=== PATIENT | male | born 2000 | race African-American/Black ===

== ENCOUNTER 2022-03-05 15:39 | Emergency (ER) | payer MEDICAID, SELFPAY ==
[2022-03-05] VITALS (8 sets, daily range): BP systolic 93–176; BP diastolic 67–94; PULSE 94–130; RESP 18–25; TEMP 36.2–37.3; O2SAT 92–100; BMI 24.3
--- NOTE | 2022-03-05 15:54 | EX.ED.DYSGE1 ---
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 Patient was on the top bunk at the halfway when he had a seizure. Patient fell off and hit his head. Upon arrival to the emergency department, the patient had another seizure. Patient is currently postictal. Patient is nonverbal at this time. PFSH PFS Medical History unable to obtain Home Medications Unobtainable 03/05/22 [History Last Taken Unknown] Allergy/AdvReac Type Severity Reaction Status Date / Time Unable to Assess Allergy Verified 03/05/22 17:54 Family History unable to obtain Surgical History unable to obtain Social History Smoking Status: Unknown if ever smoked ROS ROS ED Review of Systems ROS Unobtainable: due to mental status EXAM Physical Exam Const Vital Signs: 03/05/22 15:41 03/05/22 16:06 03/05/22 17:27 Temperature 97.1 F L Temperature Source Temporal Pulse Rate 94 122 H 130 H Respiratory Rate 18 25 H 20 H Respiratory Effort Respiratory Depth Respiratory Pattern Blood Pressure 176/94 H 93/81 H Blood Pressure Mean 121 85 Pulse Ox 99 92 95 Oxygen Delivery Method Room Air Room Air Room Air 03/05/22 16:00 03/05/22 17:49 03/05/22 18:00 Temperature Temperature Source Pulse Rate 123 H 118 H Respiratory Rate 23 H 20 H Respiratory Effort Normal Non-Labored Respiratory Depth Normal Respiratory Pattern Normal Blood Pressure 125/88 H 129/74 H Blood Pressure Mean 100 92 Pulse Ox 99 100 Oxygen Delivery Method Room Air Room Air Room Air 03/05/22 18:06 Temperature 99.2 F H Temperature Source Temporal Pulse Rate Respiratory Rate Respiratory Effort Respiratory Depth Respiratory Pattern Blood Pressure Blood Pressure Mean Pulse Ox Oxygen Delivery Method Positive well nourished and well developed General Appearance ED: well developed HEENT HEENT Narrative: There is right periorbital edema and ecchymosis. There is a laceration of the right eyebrow. There is no bony crepitance or step-off. Resp normal respiratory effort and clear to auscultation bilaterally Cardio regular rate and regular rhythm GI normal to inspection, nondistended, normoactive bowel sounds and non-tender MDM MDM MDM Narrative Medical decision making narrative: Patient was given IV fluids and Ativan here. Patient was given a tetanus booster. Patient had 2 other seizures before regaining consciousness. Patient was given Ativan, Dilantin, and Keppra for the seizures. CBC shows a leukocytosis of 18.4. Pro time was 18.1 with an INR of 1.5. PTT was 29.1. Comprehensive metabolic profile shows a sodium of 148, CO2 of 8.0, anion gap of 36, creatinine of 1.43, glucose of 201. Patient was given 2 doses of sodium and bicarbonate. Patient was given more IV fluids. Urinalysis does not show any evidence of urinary tract infection. Serum acetone was negative. Serum lactate was elevated at 31.4. Arterial blood gas shows a pH of 7.235, PCO2 of 31.4, PO2 of 98.6, bicarb of 13.3, and O2 saturation of 96.4. CT scan of the brain was obtained. There is no acute intracranial hemorrhage or mass-effect. There is a right orbital roof fracture with extension into the anterior cranial fossa. This was interpreted by the radiologist and reviewed by myself. Portable 1 view chest x-ray was obtained. On my interpretation, lung chery are clear. There is normal cardiac silhouette. Bony thorax is normal. There is no acute process noted. Radiologist also interpreted the x-ray and agrees. Patient was given a tetanus booster. Case was discussed with Dr. Driver, trauma surgeon at [facility]. She excepted the patient to trauma ICU. Patient will be transferred there. Lab Data Attestation: I reviewed the patient's lab results. Labs: Laboratory Results - last 24 hr 03/05/22 03/05/22 03/05/22 16:00 16:00 16:00 WBC 18.4 H RBC 5.19 Hgb 15.7 Hct 52.2 MCV 100.6 H MCH 30.3 MCHC 30.1 L RDW Std Deviation 45.1 H RDW Coeff of Roman 12.1 Plt Count 294 MPV 11.1 Immature Gran % (Auto) 0.800 Neut % (Auto) 43.9 L Lymph % (Auto) 45.4 H [place] % (Auto) 8.0 Eos % (Auto) 1.4 Baso % (Auto) 0.5 Absolute Neuts (auto) 8.1 H Absolute Lymphs (auto) 8.34 H Nucleated RBC % 0 Differential Comment SCANNED PT 18.1 H INR 1.5 APTT 29.1 Sodium 148 H Potassium 4.9 Chloride 104 Carbon Dioxide 8.0 L* Anion Gap 36 H BUN 13 Creatinine 1.43 H Estim Creat Clear Calc 79.72 Est GFR (MDRD) Af Amer 81 Est GFR (MDRD) Non-Af 67 BUN/Creatinine Ratio 9.1 L Glucose 201 H Lactic Acid Calcium 11.1 H Total Bilirubin 0.40 AST 30 ALT 36 Alkaline Phosphatase 70 Total Protein 9.4 H Albumin 5.0 Globulin 4.4 H Albumin/Globulin Ratio 1.1 Urine Color Urine Clarity Urine pH Ur Specific Elizabeth Urine Protein Urine Glucose (UA) Urine Ketones Urine Occult Blood Urine Nitrite Urine Bilirubin Urine Urobilinogen Ur Leukocyte Esterase Urine RBC Urine WBC Ur Squamous Epith Cells Urine Bacteria Hyaline Casts Urine Mucus Ur Drug Screen Comment Acetone Level 03/05/22 03/05/22 03/05/22 16:00 16:00 16:20 WBC RBC Hgb Hct MCV MCH MCHC RDW Std Deviation RDW Coeff of Roman Plt Count MPV Immature Gran % (Auto) Neut % (Auto) Lymph % (Auto) [place] % (Auto) Eos % (Auto) Baso % (Auto) Absolute Neuts (auto) Absolute Lymphs (auto) Nucleated RBC % Differential Comment PT INR APTT Sodium Potassium Chloride Carbon Dioxide Anion Gap BUN Creatinine Estim Creat Clear Calc Est GFR (MDRD) Af Amer Est GFR (MDRD) Non-Af BUN/Creatinine Ratio Glucose Lactic Acid 31.4 H* Calcium Total Bilirubin AST ALT Alkaline Phosphatase Total Protein Albumin Globulin Albumin/Globulin Ratio Urine Color Urine Clarity Urine pH Ur Specific Elizabeth Urine Protein Urine Glucose (UA) Urine Ketones Urine Occult Blood Urine Nitrite Urine Bilirubin Urine Urobilinogen Ur Leukocyte Esterase Urine RBC Urine WBC Ur Squamous Epith Cells Urine Bacteria Hyaline Casts Urine Mucus Ur Drug Screen Comment Acetone Level NEGATIVE 03/05/22 16:26 WBC RBC Hgb Hct MCV MCH MCHC RDW Std Deviation RDW Coeff of Roman Plt Count MPV Immature Gran % (Auto) Neut % (Auto) Lymph % (Auto) [place] % (Auto) Eos % (Auto) Baso % (Auto) Absolute Neuts (auto) Absolute Lymphs (auto) Nucleated RBC % Differential Comment PT INR APTT Sodium Potassium Chloride Carbon Dioxide Anion Gap BUN Creatinine Estim Creat Clear Calc Est GFR (MDRD) Af Amer Est GFR (MDRD) Non-Af BUN/Creatinine Ratio Glucose Lactic Acid Calcium Total Bilirubin AST ALT Alkaline Phosphatase Total Protein Albumin Globulin Albumin/Globulin Ratio Urine Color Straw Urine Clarity Clear Urine pH 7.0 Ur Specific Elizabeth 1.010 Urine Protein 30 H Urine Glucose (UA) Normal Urine Ketones Negative Urine Occult Blood 10 H Urine Nitrite Negative Urine Bilirubin Negative Urine Urobilinogen Normal Ur Leukocyte Esterase Negative Urine RBC 0-5 SEEN Urine WBC 0-5 SEEN Ur Squamous Epith Cells 0-5 SEEN Urine Bacteria RARE Hyaline Casts 10-25 SEEN Urine Mucus 0 SEEN Ur Drug Screen Comment Acetone Level ABG Data ABG results: ABG 03/05/22 17:04 Specimen Type ART Sample Site R Radial pH 7.24 L Bicarbonate Actual 13.3 L Total CO2 14 Base Excess -14 L O2 Saturation 96 ABG pCO2 31.4 L ABG pO2 99 Erasmo Test Positive O2 Delivery Device Room Air Radiography Chest X-Ray - ED: 1 View, Read by ED Physician, Read by Radiologist and Normal Diagnostic Testing: Clinical Impression(s) from Imaging Studies Brain CT 03/05/22 15:56 IMPRESSION: 1. No acute intracranial hemorrhage or mass effect. 2. Right orbital roof fracture with extension into the anterior cranial fossa. Right periorbital soft tissue swelling/injury. Electronically Signed: Levon Castillo MD (Brooks) at 16:54 EDT , Chest X-Ray 03/05/22 16:35 IMPRESSION: No acute cardiopulmonary process. Electronically Signed: Levon Castillo MD (Brooks) at 16:57 EDT , Critical Care Time Critical Care Time: Yes Critical care time (excluding procedures): 30-74 minutes (42), Including time spent:, Discussing w/Patient &/or Family/Enterprise Integration Developer, Discussing w/Consultants, Arranging Admission or Transfer and Performing Direct Patient Care at Bedside Discharge Plan Triage Chief Complaint: Trauma Other Complaint: Seizure ED Provider: Andi Copeland Dx/Rx/DC Orders Clinical Impression: Status epilepticus, Head trauma, Fracture of orbital roof, right side, initial encounter for open fracture, Acidosis, lactic, High anion gap metabolic acidosis Prescriptions: No Action Unobtainable Disposition Disposition: Acute Care Hospital Discharge Location: [facility]
--- NOTE | 2022-03-05 15:56 | CT_ITS ---
STUDY: CT BRAIN WITHOUT CONTRAST REASON FOR EXAM: Male, 21 years old. HAVING A SEIZURE AND FELL OFF THE TOP BUNK IN [facility],RT EYE SWELLING AND LACERATION RADIATION DOSAGE (If Supplied By Facility): CTDIvol = ( 44.99 ) mGy, DLP = ( 812.98 ) mGycm TECHNIQUE: Transaxial CT imaging of the brain was performed without administration of intravenous contrast material. Individualized dose optimization techniques were used for this CT. COMPARISON: No relevant priors. FINDINGS: Right periorbital/frontal soft tissue swelling with locules of air compatible laceration/injury. Normal calvarium. Normal size ventricles and extra-axial spaces for the patient''s age. Normal white matter tracts of the cerebral hemispheres. Normal basal ganglia and thalami. Normal brainstem. Normal cerebellum. There is no intracranial hemorrhage. There are no findings of an acute ischemic infarction. Air-fluid levels in the bilateral maxillary sinuses. Fracture of the right superior orbital wall/roof is seen on image 27 series 201), extending into the anterior cranial fossa (image 27 series 602). CT/Brain/Head without Contrast IMPRESSION: 1. No acute intracranial hemorrhage or mass effect. 2. Right orbital roof fracture with extension into the anterior cranial fossa. Right periorbital soft tissue swelling/injury. Electronically Signed: Levon Castillo MD (Brooks) at 16:54 EDT Reading Location ID and State: [facility] / [place] , Service support ,
[2022-03-05] MEDS: LORazepam 2 MG/ML Syringe 1 MG IV ×4 (16:00→18:43)
[2022-03-05 16:10] LABS: Absolute Lymphocyte Count 8.34 X10^3/uL (0.83-4.51); Absolute Neutrophil Count 8.1 X10^3/uL (2.0-7.7); Basophil# 0.09 X10^3/uL; Basophil% 0.5 % (0-1); Eosinophil# 0.25 X10^3/uL; Eosinophils% 1.4 % (0-5); Hematocrit 52.2 % (40-54); Hemoglobin 15.7 g/dL (13.0-16.5); Lymphocyte # 8.34 X10^3/ul (0.83-4.51); Lymphocyte % 45.4 % (19-41); Mean Corp Hgb Conc 30.1 g/dL (32-36); Mean Corpuscular Hgb 30.3 pg (27.0-32.0); Mean Corpuscular Volume 100.6 fL (80-94); Mean Platelet Vol. 11.1 fl (6.2-12.0); Monocyte# 1.47 X10^3/uL; NRBC Flagged by Analyzer 0 % (0-5); Neutrophil # 8.07 X10^3/uL (2.7-7.7); Neutrophil % 43.9 % (47-70); POSITIVE DIFFERENTIAL YES; POSITIVE MORPHOLOGY YES; Platelet Count 294 K/mm3 (150-450); RBC Distribution Width CV 12.1 % (11.6-14.6); RBC Distribution Width SD 45.1 fl (35.1-43.9); Red Blood Count 5.19 M/mm3 (4.6-6.2); White Blood Count 18.4 K/mm3 (4.4-11.0)
--- NOTE | 2022-03-05 16:11 | ED.RN ---
patient brought from [facility]. We have requested his medical records be faxed to [facility] ED. Unable to obtain medical history or medications at this time. reports the nurse has left for the day.
[2022-03-05 16:17] LABS: Differential Indicated SCAN CRITERIA MET
[2022-03-05] MEDS: 0.9% Normal Saline 1,000 ML 1000 ML IV ×3 (16:18→17:42)
[2022-03-05 16:24] LABS: International Normalized Ratio 1.5; Prothrombin Time (Protime)PT. 18.1 SECONDS (11.7-14.9)
[2022-03-05 16:25] LABS: Partial Thromboplast Time 29.1 Seconds (24.1-36.2)
[2022-03-05 16:29] LABS: Mucous, Urine 0 SEEN /hpf (<or=2+)
[2022-03-05 16:35] LABS: Color, Urine Straw (Yellow); Glucose, Dipstick Normal (Normal); Ketone-Dipstick Negative (Negative); Leukocyte Esterase-Dipstick Negative /ul (Negative); Nitrite-Dipstick Negative (Negative); Occult Blood-Urine 10 /ul (Negative); Protein-Dipstick 30 mg/dl (Negative); Urine Bilirubin Dipstick Negative (Negative); Urine Clarity Clear (Clear); Urine Urobilinogen Normal (Normal)
--- NOTE | 2022-03-05 16:35 | RAD_ITS ---
STUDY: X-RAY CHEST REASON FOR EXAM: Male, 21 years old. Seizure TECHNIQUE: Single AP portable view of the chest. COMPARISON: None. FINDINGS: The lungs are clear and expanded. There is no demonstrated pleural abnormality. Normal size heart. Normal mediastinum and brooklynn. Normal visualized pulmonary arteries. Normal visualized aortic arch and descending thoracic aorta. There is a dextroscoliosis of the thoracic spine. Normal visualized ribs, clavicles, and shoulders. There is no demonstrated abnormality of the visualized soft tissue structures of the upper abdomen. RAD/Chest 1 View (Portable) IMPRESSION: No acute cardiopulmonary process. Electronically Signed: Levon Castillo MD (Brooks) at 16:57 EDT ,
[2022-03-05 16:39] LABS: ALB/GLOB Ratio 1.1 RATIO (0.9-2.4); AST(SGOT) 30 U/L (15-37); Alanine Aminotransfer ALT/SGPT 36 U/L (16-61); Alkaline Phosphatase 70 U/L (45-117); Anion Gap 36 (5-15); BUN 13 mg/dL (7-18); BUN/Creat Ratio 9.1 RATIO (10-20); Calcium,Total 11.1 mg/dL (8.5-10.1); Chloride 104 mmol/L (98-107); Creatinine, Serum 1.43 mg/dL (0.70-1.30); EST Glomerular Filtration Rate 67 mL/min (>60); Est Glom Filt Rate - Afr Amer 81 mL/min (>60); Estimated Creatinine Clearance 79.72 ml/min; Globulin 4.4 g/dL (2.2-4.2); Glucose 201 mg/dL (74-106); Potassium 4.9 mmol/L (3.5-5.1); Protein, Total 9.4 g/dL (6.4-8.2); Sodium Level 148 mmol/L (136-145)
[2022-03-05 16:41] LABS: Differential Comment SCANNED
[2022-03-05 16:50] LABS: Red Blood Cells-Urine 0-5 SEEN /hpf (0-5); White Blood Cells 0-5 SEEN /hpf (0-5)
[2022-03-05 16:51] LABS: Bacteria RARE /hpf (None Seen); Squamous Epithelial Cells - UA 0-5 SEEN /hpf (0-5)
[2022-03-05 16:52] LABS: Hyaline Cast 10-25 SEEN /lpf (0-5)
[2022-03-05] MEDS: levETIRAcetam IV 1,000 MG/100 ML BAG 400 MG IV (17:06)
[2022-03-05 17:10] LABS: Allen Test Positive; Base Excess -14 mmol/L (-2 to +2); Bicarbonate 13.3 mmol/L (22-26); Blood Gas Specimen Type ART; O2 Delivery Device Room Air; PO2 99 mmHG (75-100); SITE R Radial; SO2 96 % (95-99); Total Carbon Dioxide 14 mmol/L; pCO2 31.4 mmHg (35-45); pH 7.24 (7.35-7.45)
[2022-03-05] MEDS: Sodium Bicarbonate 8.4% 50 ML Syringe 50 MEQ IV ×2 (17:10→17:18)
[2022-03-05] MEDS: Diphth,Pertuss(Acell),Tet Vac 0.5 ML Vial IM (17:14)
[2022-03-05 17:32] LABS: Lactic Acid 31.4 mmol/L (0.4-1.9)
--- NOTE | 2022-03-05 18:03 | NURSING ---
two doses of 1mg of Ativan pulled from same 2mg vial. Jelani MENDOSA verified with this nurse.
--- NOTE | 2022-03-05 18:06 | CM.ED ---
INDRA called patient's parents number [phone] and left voice mail message to call this bond writer JAMES. 6:05pm INDRA called which was previously listed contact number. Number is not in service. Sera DESAI
--- NOTE | 2022-03-05 18:13 | NURSING ---
clarified with Police pt has been in [facility] since 02/17/22
[2022-03-05 18:14] LABS: Amphetamine Urine VISTA NEGATIVE (<1000 ng/mL); Barbiturate Urine VISTA NEGATIVE (< 200 ng/mL); Benzodiazepine Urine VISTA NEGATIVE (< 200 ng/mL); Cocaine Urine VISTA NEGATIVE (< 300 ng/mL); Ecstacy Urine VISTA NEGATIVE (< 500 ng/mL); Methadone Urine VISTA NEGATIVE (< 300 ng/mL); PCP Urine VISTA NEGATIVE (< 25 ng/mL); THC Urine VISTA NEGATIVE (< 50 ng/mL); Vista UDS pH Range 7
--- NOTE | 2022-03-05 18:17 | CT_ITS ---
EXAM: CT CERVICAL SPINE WITHOUT INTRAVENOUS CONTRAST CLINICAL INDICATION: Fall from bunk bed, pain TECHNIQUE: Helically acquired images were obtained of the cervical spine without intravenous contrast. 2D reformatted images were reviewed. This CT exam was performed using one or more of the following dose reduction techniques: automated exposure control, adjustment of the mA and/or kV according to patient size, and/or use of iterative reconstruction technique. This report was created using [employer] report generation technology. RADIATION DOSE: CTDIvol = 22.33 mGy, DLP = 489.37 mGy-cm COMPARISON: None. FINDINGS: VERTEBRAE: Unremarkable. No fracture. No traumatic subluxation. No discrete lytic or blastic abnormality. Normal alignment. Normal craniocervical junction and cervicothoracic junction. DISCS/SPINAL CANAL/NEURAL FORAMINA: Unremarkable. Disc heights are preserved. No critical stenosis. SOFT TISSUES: Unremarkable. No prevertebral soft tissue swelling. LYMPH NODES: Unremarkable. No cervical adenopathy. LUNG APICES: Patchy infiltrates of the right more than left upper lobes partially visualized. CT/Spine Cervical without Contras IMPRESSION: 1. Patchy infiltrates of the right more than left upper lobes partially visualized and could represent mild pneumonitis/infection, edema or contusion in setting of trauma. 2. No cervical spine fracture or traumatic subluxation. Electronically Signed: Levon Castillo MD (Brooks) at 18:56 EDT Reading Location ID and State: [facility] / [place] , Service support ,
--- NOTE | 2022-03-05 18:22 | EDS_ITS ---
HPI History of Present Illness Chief Complaint: Trauma Informant: police/ Onset/Context/Timing Onset: Today Context: Sudden Onset Timing: Intermittent Quality: Tonic-clonic Location: Generalized Narrative Narrative: Patient presents with a seizure that occurred today. Patient was in the long term on the top bunk when he had a seizure. Patient fell off of the top bunk and hit his head. Patient is postictal currently and is nonverbal. It is unclear if the patient has a history of seizures. 's department does not know if patient is taking any antiepileptic medications. reports that patient was mentating fine while he was going through booking. PFSH PFS Medical History unable to obtain unable to obtain Home Medications Unobtainable 03/05/22 [History Last Taken Unknown] Allergy/AdvReac Type Severity Reaction Status Date / Time Unable to Assess Allergy Verified 03/05/22 17:54 Family History unable to obtain Surgical History unable to obtain unable to obtain Social History Smoking Status: Unknown if ever smoked ROS ROS ED Review of Systems ROS Unobtainable: due to mental status EXAM Physical Exam Const Vital Signs: 03/05/22 15:41 03/05/22 16:06 03/05/22 17:27 Temperature 97.1 F L Temperature Source Temporal Pulse Rate 94 122 H 130 H Respiratory Rate 18 25 H 20 H Respiratory Effort Respiratory Depth Respiratory Pattern Blood Pressure 176/94 H 93/81 H Blood Pressure Mean 121 85 Pulse Ox 99 92 95 Oxygen Delivery Method Room Air Room Air Room Air 03/05/22 16:00 03/05/22 17:49 03/05/22 18:00 Temperature Temperature Source Pulse Rate 123 H 118 H Respiratory Rate 23 H 20 H Respiratory Effort Normal Non-Labored Respiratory Depth Normal Respiratory Pattern Normal Blood Pressure 125/88 H 129/74 H Blood Pressure Mean 100 92 Pulse Ox 99 100 Oxygen Delivery Method Room Air Room Air Room Air 03/05/22 18:06 Temperature 99.2 F H Temperature Source Temporal Pulse Rate Respiratory Rate Respiratory Effort Respiratory Depth Respiratory Pattern Blood Pressure Blood Pressure Mean Pulse Ox Oxygen Delivery Method Positive well nourished and well developed General Appearance ED: well developed HEENT Reports moist mucous membranes HEENT Narrative: There is right periorbital edema and ecchymosis. There is no bony crepitance or step-off noted. There is a laceration to his right eyebrow. There is minimal gapping of the wound margins. There is mild bleeding. Resp normal respiratory effort and clear to auscultation bilaterally Cardio regular rhythm Rate: tachycardic GI non-distended Palpation: soft Extremity normal to inspection Neuro Sensorium / Orientation: orientation impaired Skin Skin Narrative: There is a laceration to the right eyebrow. There is minimal gapping of the wound margins. There is no active bleeding noted. MDM MDM MDM Narrative Medical decision making narrative: Patient was given IV fluids and Ativan initially. Patient was given a tetanus booster. Patient had recurrent seizures here in the emergency department. Patient was given doses of Ativan after each seizure. Patient was also given a dose of Dilantin and a dose of Keppra. CBC shows a leukocytosis of 18.4. Pro time was 18.1 and INR was 1.5. PTT was normal at 29.1. Comprehensive metabolic profile showed a sodium of 148, CO2 of 8.0, anion gap of 36, creatinine of 1.43, glucose of 201. Serum acetone was negative. Lactate was 31.4. Urinalysis does not show any evidence of urinary tract infection. Urine tox screen was negative. CT scan of the brain was obtained. There is no acute intracranial hemorrhage or mass-effect. There is a right orbital roof fracture with extension into the anterior cranial fossa. There is periorbital soft tissue swelling. This was interpreted by the radiologist and reviewed by myself. Portable 1 view chest x-ray was obtained. On my interpretation, lung chery are clear. There is normal cardiac silhouette. Bony thorax is normal. There is no acute process noted. Radiologist also interpreted the x-ray and agrees. Patient was given 2 doses of sodium bicarbonate. Patient was given more IV fluids. Case was discussed with Dr. Driver, trauma surgeon at [facility]. She recommended obtaining CT scan of the cervical spine. This was obtained. Patient will be transferred to [facility] to the trauma ICU. Lab Data Attestation: I reviewed the patient's lab results. Labs: Laboratory Results - last 24 hr 03/05/22 03/05/22 03/05/22 16:00 16:00 16:00 WBC 18.4 H RBC 5.19 Hgb 15.7 Hct 52.2 MCV 100.6 H MCH 30.3 MCHC 30.1 L RDW Std Deviation 45.1 H RDW Coeff of Roman 12.1 Plt Count 294 MPV 11.1 Immature Gran % (Auto) 0.800 Neut % (Auto) 43.9 L Lymph % (Auto) 45.4 H [place] % (Auto) 8.0 Eos % (Auto) 1.4 Baso % (Auto) 0.5 Absolute Neuts (auto) 8.1 H Absolute Lymphs (auto) 8.34 H Nucleated RBC % 0 Differential Comment SCANNED PT 18.1 H INR 1.5 APTT 29.1 Sodium 148 H Potassium 4.9 Chloride 104 Carbon Dioxide 8.0 L* Anion Gap 36 H BUN 13 Creatinine 1.43 H Estim Creat Clear Calc 79.72 Est GFR (MDRD) Af Amer 81 Est GFR (MDRD) Non-Af 67 BUN/Creatinine Ratio 9.1 L Glucose 201 H Lactic Acid Calcium 11.1 H Total Bilirubin 0.40 AST 30 ALT 36 Alkaline Phosphatase 70 Total Protein 9.4 H Albumin 5.0 Globulin 4.4 H Albumin/Globulin Ratio 1.1 Urine Color Urine Clarity Urine pH Ur Specific [place] Urine Protein Urine Glucose (UA) Urine Ketones Urine Occult Blood Urine Nitrite Urine Bilirubin Urine Urobilinogen Ur Leukocyte Esterase Urine RBC Urine WBC Ur Squamous Epith Cells Urine Bacteria Hyaline Casts Urine Mucus Urine Opiates Screen Urine Methadone Screen Ur Barbiturates Screen Ur Phencyclidine Scrn Ur Amphetamines Screen MDMA (Ecstasy) Screen U Benzodiazepines Scrn Urine Cocaine Screen U Cannabinoids Screen Ur Drug Screen Comment Acetone Level 03/05/22 03/05/22 03/05/22 16:00 16:00 16:20 WBC RBC Hgb Hct MCV MCH MCHC RDW Std Deviation RDW Coeff of Roman Plt Count MPV Immature Gran % (Auto) Neut % (Auto) Lymph % (Auto) [place] % (Auto) Eos % (Auto) Baso % (Auto) Absolute Neuts (auto) Absolute Lymphs (auto) Nucleated RBC % Differential Comment PT INR APTT Sodium Potassium Chloride Carbon Dioxide Anion Gap BUN Creatinine Estim Creat Clear Calc Est GFR (MDRD) Af Amer Est GFR (MDRD) Non-Af BUN/Creatinine Ratio Glucose Lactic Acid 31.4 H* Calcium Total Bilirubin AST ALT Alkaline Phosphatase Total Protein Albumin Globulin Albumin/Globulin Ratio Urine Color Urine Clarity Urine pH Ur Specific [place] Urine Protein Urine Glucose (UA) Urine Ketones Urine Occult Blood Urine Nitrite Urine Bilirubin Urine Urobilinogen Ur Leukocyte Esterase Urine RBC Urine WBC Ur Squamous Epith Cells Urine Bacteria Hyaline Casts Urine Mucus Urine Opiates Screen NEGATIVE Urine Methadone Screen NEGATIVE Ur Barbiturates Screen NEGATIVE Ur Phencyclidine Scrn NEGATIVE Ur Amphetamines Screen NEGATIVE MDMA (Ecstasy) Screen NEGATIVE U Benzodiazepines Scrn NEGATIVE Urine Cocaine Screen NEGATIVE U Cannabinoids Screen NEGATIVE Ur Drug Screen Comment Acetone Level NEGATIVE 03/05/22 16:26 WBC RBC Hgb Hct MCV MCH MCHC RDW Std Deviation RDW Coeff of Roman Plt Count MPV Immature Gran % (Auto) Neut % (Auto) Lymph % (Auto) [place] % (Auto) Eos % (Auto) Baso % (Auto) Absolute Neuts (auto) Absolute Lymphs (auto) Nucleated RBC % Differential Comment PT INR APTT Sodium Potassium Chloride Carbon Dioxide Anion Gap BUN Creatinine Estim Creat Clear Calc Est GFR (MDRD) Af Amer Est GFR (MDRD) Non-Af BUN/Creatinine Ratio Glucose Lactic Acid Calcium Total Bilirubin AST ALT Alkaline Phosphatase Total Protein Albumin Globulin Albumin/Globulin Ratio Urine Color Straw Urine Clarity Clear Urine pH 7.0 Ur Specific [place] 1.010 Urine Protein 30 H Urine Glucose (UA) Normal Urine Ketones Negative Urine Occult Blood 10 H Urine Nitrite Negative Urine Bilirubin Negative Urine Urobilinogen Normal Ur Leukocyte Esterase Negative Urine RBC 0-5 SEEN Urine WBC 0-5 SEEN Ur Squamous Epith Cells 0-5 SEEN Urine Bacteria RARE Hyaline Casts 10-25 SEEN Urine Mucus 0 SEEN Urine Opiates Screen Urine Methadone Screen Ur Barbiturates Screen Ur Phencyclidine Scrn Ur Amphetamines Screen MDMA (Ecstasy) Screen U Benzodiazepines Scrn Urine Cocaine Screen U Cannabinoids Screen Ur Drug Screen Comment Acetone Level ABG Data ABG results: ABG 03/05/22 17:04 Specimen Type ART Sample Site R Radial pH 7.24 L Bicarbonate Actual 13.3 L Total CO2 14 Base Excess -14 L O2 Saturation 96 ABG pCO2 31.4 L ABG pO2 99 Erasmo Test Positive O2 Delivery Device Room Air Radiography Chest X-Ray - ED: 1 View, Read by ED Physician, Read by Radiologist and No Acute Disease Diagnostic Testing: Clinical Impression(s) from Imaging Studies Brain CT 03/05/22 15:56 IMPRESSION: 1. No acute intracranial hemorrhage or mass effect. 2. Right orbital roof fracture with extension into the anterior cranial fossa. Right periorbital soft tissue swelling/injury. Electronically Signed: Levon Castillo MD (Brooks) at 16:54 EDT , Chest X-Ray 03/05/22 16:35 IMPRESSION: No acute cardiopulmonary process. Electronically Signed: Levon Castillo MD (Brooks) at 16:57 EDT , Critical Care Time Critical Care Time: Yes Critical care time (excluding procedures): 30-74 minutes (42), Including time spent:, Discussing w/Patient &/or Family/Senior Science Consultant, Discussing w/Consultants, Arranging Admission or Transfer and Performing Direct Patient Care at Bedside Discharge Plan Triage Chief Complaint: Trauma Other Complaint: Seizure ED Provider: Andi Copeland Dx/Rx/DC Orders Clinical Impression: Status epilepticus, Head trauma, Fracture of orbital roof, right side, initial encounter for open fracture, Acidosis, lactic, High anion gap metabolic acidosis Prescriptions: No Action Unobtainable Disposition Disposition: Acute Care Hospital Discharge Location: [facility]
--- NOTE | 2022-03-05 18:44 | CM.ED ---
INDRA called listed number on patient's face sheet for Radha Eller at [phone]. INDRA asked to speak to Mahsa and the person answering the phone said that was his ex and he has no contact information for her way to get in touch with her. INDRA explained that patient was brought to the ED today as he had a seizure and fell. INDRA advised patient is being transferred to [facility]. Radha stated that Andrés is his son. Radha said that there was no childhood seizures. Radha said that patient reported he had a seizure at his girlfriends house prior to going to custodial but never had follow up MD appointment. Father, Radha, stated that patient's condition was exacerbated because of drugs... pills with fentanyl. INDRA provided father, Radha with phone number for forensic social worker and also phone number for the ED. INDRA asked patients RN to call patient's father. INDRA updated pneumatic tube fitter Ernestina and MD Copeland. Sera Miranda
--- NOTE | 2022-03-05 19:24 | NURSING ---
CALLED PHYSICIANS AT 1835, THEY HAD AN EXTENDED ETA, THEY CALLED BACK AT 185 WITH MARIA E COMING WITHIN 10-15 MINUTES. [facility] ARRIVED AT 1905.
[2022-03-05 20:51] LABS: Reflex Lactate? Y
== END 2022-03-05 19:15 | disposition short-term general hospital (02) ==
PROVIDERS: Emergency Provider Emergency Medicine; Visit Provider Emergency Medicine
DX: S02.121A Fracture of orbital roof, right side, initial encounter for closed fracture (principal); G40.901 Epilepsy, unspecified, not intractable, with status epilepticus; S09.90XA Unspecified injury of head, initial encounter; E87.2 Acidosis; R31.9 Hematuria, unspecified; W06.XXXA Fall from bed, initial encounter; Y92.89 Other specified places as the place of occurrence of the external cause
CPT/HCPCS: 36600; 51702; 70450; 71045; 72125; 80053; 80307; 81001; 82009; 82803; 83605; 85025; 85610; 85730; 90715; 99285; J7030; A4216

== ENCOUNTER 2022-03-09 21:49 | Emergency (ER) | payer MEDICAID, SELFPAY ==
[2022-03-09 21:49] VITALS: BP 154/106; PULSE 126; RESP 16; TEMP 36.6; O2SAT 97; BMI 18.1
--- NOTE | 2022-03-09 22:15 | EX.ED.DYSGE1 ---
HPI History of Present Illness Chief Complaint: Numb/Ting Informant: patient Narrative Narrative: -year-old male presenting to the emergency department with paresthesias of the right foot. Patient states symptoms began around 10:00 this morning when he was laying in bed after waking up. He states it feels like his foot from the mid calf inferiorly is asleep. He states he is moving it just fine and that he can feel touch. But it feels tingly when he moves it or touches it. He is not a diabetic. He recently underwent inpatient evaluation for a right periorbital fracture with seizure activity. He is unsure of what position he slept in last night. PFSH PFSH Home Medications Unobtainable 03/05/22 [History Last Taken Unknown] Allergy/AdvReac Type Severity Reaction Status Date / Time clindamycin Allergy Rash Verified 03/09/22 21:51 Social History (Updated 03/09/22 @ 22:[address] Marcos Alonzo, DO) current gender identity: male Smoking Status: Unknown if ever smoked ROS ROS ED Constitutional Constitutional ED: Denies chills or weight loss Eyes Eyes: Denies change in vision or diplopia ENT ENT ED: Denies ear pain, rhinorrhea or sore throat Cardiovascular Cardiovascular: Denies chest pain, orthopnea, palpitations or racing heartbeat Respiratory/Chest Respiratory/Chest: Denies cough, dyspnea or orthopnea Gastrointestinal Gastrointestinal: Denies abdominal pain, diarrhea, nausea or vomiting Genitourinary Genitourinary ED: Denies dysuria, hematuria or urinary frequency Musculoskeletal Musculoskeletal: Denies arthralgias or myalgias Integumentary Denies abscess or rash Neurologic Neurologic: Reports paresthesias; Denies headache(s) or weakness Psychiatric Psychiatric: Denies anxiety, depression, suicidal ideation or suicidal thoughts Endocrine Endocrinology: Denies polydipsia, polyphagia or polyuria Allergic/Immunologic Allergic/Immunologic ED: Denies mouth swelling, tongue swelling or urticaria EXAM Physical Exam Const Vital Signs: 03/09/22 21:49 Temperature 98 F Temperature Source Temporal Pulse Rate 126 H Respiratory Rate 16 Blood Pressure 154/106 H Blood Pressure Mean 122 Pulse Ox 97 Oxygen Delivery Method Room Air Positive well nourished and well developed General Appearance ED: well developed HEENT Reports normocephalic, head/scalp atraumatic and moist mucous membranes Eyes PERRL and EOMs intact bilaterally Neck no lymphadenopathy, supple and no JVD Resp normal respiratory effort and clear to auscultation bilaterally Cardio regular rate, regular rhythm and no murmurs GI normal to inspection, nondistended, normoactive bowel sounds and non-tender Palpation: soft Back/Spine no CVA tenderness and normal ROM Extremity normal to inspection General Extremety ED: Negative for edema General Extremity: Negative for edema Neuro oriented x3 and CN's II-XII intact bilaterally Neuro Narrative: Patient reports tingling with palpation from the mid calf inferiorly. Sensorium / Orientation: alert Motor Exam: strength 5/5 throughout Psych mental status grossly normal Mood & Affect: Negative for depressed or tearful Skin no rashes or lesions noted and no wounds MDM MDM MDM Narrative Medical decision making narrative: Patient has motor and sensation intact. However he has paresthesias of the right foot and calf. It is diffuse on top and bottom of the foot. Do not think this represents a isolated lesion in the brain. Would recommend outpatient follow-up. Discharge Plan Triage Chief Complaint: Numb/Ting ED Provider: Marcos Alonzo Dx/Rx/DC Orders Clinical Impression: Paresthesia of right foot Instructions: ED Paraesthesias Prescriptions: No Action Unobtainable Primary Care Provider: NOT,DEFINED Referrals: Elvira Bynum [NON-STAFF] - 3-5 Days if not improving NOT,DEFINED [Primary Care Provider] -
== END 2022-03-09 22:33 | disposition home or self-care (01) ==
LOC: ED 22:29
PROVIDERS: Emergency Provider Emergency Medicine; Visit Provider Emergency Medicine
DX: R20.2 Paresthesia of skin (principal)
CPT/HCPCS: 99282; A4216